=== PATIENT | female | born 1960 | race African-American/Black ===

== ENCOUNTER 2018-03-04 21:25 | Emergency (ER) | payer MEDICARE, MEDICAID ==
[~2018-03-04] VITALS: Ht 167.6 cm; Wt 112.0 kg
[~2018-03-04 21:25] MED LIST: ALPR-341 PO; AMLO10TA80 PO; SULI150T PO
[2018-03-04 23:30] LABS: BASOPHILS % 1.3 % (0.0-2.0); EOSINOPHILS % 6.2 % (0.0-5.0); HEMOGLOBIN. 12.5 g/dL (12.0-16.0); LYMPHOCYTES % 37.4 % (20.0-50.0); MEAN CORPUSCULAR HEMOGLOBIN 31.4 pg (28.0-32.0); MEAN CORPUSCULAR VOLUME 95.8 fL (81.0-99.0); MEAN PLATELET VOLUME 7.8 fl (7.4-10.4); MONOCYTES % 11.2 % (2.0-8.0); NEUTROPHILS % 43.9 % (40.0-76.0); PLATELET 313 x1000/uL (130-400); RED BLOOD CELL COUNT 3.97 mill/uL (4.2-5.4); RED CELL DISTRIBUTION WIDTH 13.5 % (11.6-14.6)
[2018-03-04 23:35] LABS: CHLORIDE 109 mEq/L (98-107)
[2018-03-05] MEDS ORDERED: CLONIDINE 0.2MG TABLET PO ONE (01:45)
[2018-03-05 03:30] VITALS: BP 186/90
[2018-04-06] MEDS ORDERED: P50 MT (10:33)
[2018-04-06] MEDS ORDERED: ALBU90AE INH (10:34)
[2018-04-06] MEDS ORDERED: ATOR10TA MT (12:10)
[2018-04-08] MEDS ORDERED: LEVO500T2 MT (16:43)
== END 2018-03-05 03:32 | disposition home or self-care (01) ==
LOC: ER 21:25
DX: J21.9 Acute bronchiolitis, unspecified (principal); I10 Essential (primary) hypertension; G40.909 Epilepsy, unspecified, not intractable, without status epilepticus; F12.10 Cannabis abuse, uncomplicated; Z88.8 Allergy status to other drugs, medicaments and biological substances
CPT/HCPCS: 36415; 71045; 93005; 99284

== ENCOUNTER 2018-04-04 18:21 | Inpatient (IN) | payer MEDICARE, MEDICAID ==
[~2018-04-04] VITALS: Ht 167.6 cm; Wt 113.4 kg
[2018-04-04] MEDS ORDERED: IPRATROPIUM BROMIDE (0.02%) 0.5MG/2.5ML NEB HHN STA (22:40)
[2018-04-04] MEDS ORDERED: ALBUTEROL (0.083%) 2.5MG/3ML NEB HHN STA (22:40)
[2018-04-04] MEDS ORDERED: METHYLPREDNISOLONE SOD SUCC 125 MG/2 ML VIAL IV STA (22:40)
[2018-04-04] MEDS ORDERED: LORAZEPAM 2MG/ML CPJ IV ONE (22:45)
[2018-04-04 23:07] LABS: HEMATOCRIT. 39.4 % (36.0-48.0); MEAN CORPUSCULAR HEMOGLOBIN 31.2 pg (28.0-32.0); MEAN CORPUSCULAR VOLUME 94.8 fL (81.0-99.0); PLATELET 341 x1000/uL (130-400); RED BLOOD CELL COUNT 4.15 mill/uL (4.2-5.4); RED CELL DISTRIBUTION WIDTH 13.5 % (11.6-14.6)
[2018-04-04 23:11] LABS: CHLORIDE 105 mEq/L (98-107)
[2018-04-04 23:21] LABS: PLATELET ESTIMATE NORMAL
[2018-04-04] MEDS ORDERED: HYDRALAZINE 20MG/ML VIAL IV ONE (23:45)
[2018-04-05] MEDS ORDERED: GUAIFENESIN 200MG/10ML SUGAR FREE UDC PO PRN (00:15)
[2018-04-05] MEDS ORDERED: ONDANSETRON HCL 4MG/2ML INJ IV PRN (00:15)
[2018-04-05] MEDS ORDERED: ACETAMINOPHEN 650MG SUPP PR PRN (00:15)
[2018-04-05] MEDS ORDERED: CLONIDINE 0.1MG TABLET PO ONE (00:15)
[2018-04-05] MEDS ORDERED: NA PHOS,M-B/NA PHOS,DI-BA ENEMA 118ML PR PRN (00:15)
[2018-04-05] MEDS ORDERED: DOCUSATE SODIUM 100MG CAPSULE PO PRN (00:15)
[2018-04-05] MEDS ORDERED: IPRATROPIUM/ALBUTEROL 0.5-3(2.5)MG/3ML NEB INH PRN (00:15)
[2018-04-05] MEDS ORDERED: ACETAMINOPHEN 650MG/20.3ML UDC GT PRN (00:15)
[2018-04-05] MEDS ORDERED: HYDROCODONE/ACETAMINOPHEN 5/325MG TABLET PO PRN (00:15)
[2018-04-05] MEDS ORDERED: DIPHENHYDRAMINE 50MG/ML VIAL IV PRN (00:15)
[2018-04-05] MEDS ORDERED: MAGNESIUM/ALUMINUM HYDROXIDE/SIMETHICONE 30ML UDC PO PRN (00:15)
[2018-04-05] MEDS: IPRATROPIUM/ALBUTEROL 0.5-3(2.5)MG/3ML NEB INH SCH ×4 (00:15→21:20)
[2018-04-05] MEDS ORDERED: ENOXAPARIN 40MG/0.4ML SYR SUBCUT SCH (00:15)
[2018-04-05] MEDS ORDERED: ACETAMINOPHEN 325MG TABLET PO PRN (00:15)
[2018-04-05] MEDS ORDERED: LEVOFLOXACIN 500MG PREMIX 100 ML IV SCH (00:15)
[2018-04-05 00:59] LABS: CLARITY URINE CLEAR (CLEAR); COLOR URINE YELLOW (YELLOW); KETONES URINE NEGATIVE (NEGATIVE); LEUKOCYTE ESTERASE URINE 1+ (NEGATIVE); NITRITE URINE NEGATIVE (NEGATIVE); OCCULT BLOOD URINE NEGATIVE (NEGATIVE); PROTEIN URINE NEGATIVE (NEGATIVE); SPECIFIC GRAVITY URINE 1.009 (1.005-1.030); UROBILINOGEN URINE 0.2 E.U./dL (0.2-1.0)
[2018-04-05 01:08] LABS: *AMPHETAMINES SCREEN URINE NEGATIVE (NEGATIVE); *BARBITURATES SCREEN URINE NEGATIVE (NEGATIVE); *BENZODIAZEPINES SCREEN URINE NEGATIVE (NEGATIVE)
[2018-04-05 01:09] LABS: *COCAINE SCREEN URINE NEGATIVE (NEGATIVE); METHADONE URINE SCREEN NEGATIVE (NEGATIVE); OPIATES URINE SCREEN NEGATIVE (NEGATIVE); PHENCYCLIDINE URINE SCREEN NEGATIVE (NEGATIVE)
[2018-04-05 01:10] LABS: CANNABINOID URINE SCREEN PRESUMTIVE POSITIVE (NEGATIVE)
[2018-04-05] MEDS ORDERED: LEVOFLOXACIN 500MG PREMIX 100 ML IV NR (03:00)
[2018-04-05] MEDS ORDERED: METRONIDAZOLE 500 MG PREMIX 100 ML IV SCH ×3 (06:00→14:00)
[2018-04-05] MEDS ORDERED: SODIUM CHLORIDE 0.9% INJ 3ML FLUSH IVF SCH (06:00)
[2018-04-05 06:13] LABS: CREATINE KINASE 265 IU/L (26-192)
[2018-04-05 06:14] LABS: CREATINE KINASE MB FRACTION 1.8 ng/mL (0.5-3.6)
[2018-04-05] MEDS: CLONIDINE 0.1MG TABLET PO PRN ×3 (06:35→21:42)
[2018-04-05] MEDS: METHYLPREDNISOLONE SOD SUCC 125 MG/2 ML VIAL IV SCH ×3 (07:53→17:15)
[2018-04-05] MEDS: ENOXAPARIN 30MG/0.3ML SYR SUBCUT SCH ×2 (08:30→19:58)
[2018-04-05] MEDS: SODIUM CHLORIDE 0.9% INJ 3ML FLUSH IVF SCH ×2 (14:43→21:21)
[2018-04-05 16:00] VITALS: BP 167/81
[2018-04-05 17:38] LABS: CREATINE KINASE 218 IU/L (26-192)
[2018-04-05 20:00] VITALS: BP 163/69
[2018-04-05] MEDS: METRONIDAZOLE 500 MG PREMIX 100 ML IV SCH (21:21)
[2018-04-06] VITALS: BP 148/75
[2018-04-06] MEDS: LEVOFLOXACIN 500MG PREMIX 100 ML IV SCH (00:06)
[2018-04-06] MEDS: METHYLPREDNISOLONE SOD SUCC 125 MG/2 ML VIAL IV SCH ×2 (00:06→06:01)
[2018-04-06] MEDS: IPRATROPIUM/ALBUTEROL 0.5-3(2.5)MG/3ML NEB INH SCH ×3 (00:55→08:45)
[2018-04-06 04:00] VITALS: BP 178/83
[2018-04-06 06:00] LABS: HEMATOCRIT. 37.7 % (36.0-48.0); HEMOGLOBIN. 12.4 g/dL (12.0-16.0); MEAN CORPUSCULAR HEMOGLOBIN 30.9 pg (28.0-32.0); MEAN CORPUSCULAR VOLUME 93.8 fL (81.0-99.0); PLATELET 358 x1000/uL (130-400); RED BLOOD CELL COUNT 4.02 mill/uL (4.2-5.4); RED CELL DISTRIBUTION WIDTH 13.8 % (11.6-14.6)
[2018-04-06] MEDS: METRONIDAZOLE 500 MG PREMIX 100 ML IV SCH (06:01)
[2018-04-06] MEDS: SODIUM CHLORIDE 0.9% INJ 3ML FLUSH IVF SCH ×3 (06:01→21:03)
[2018-04-06 06:44] LABS: CHLORIDE 105 mEq/L (98-107)
[2018-04-06 06:52] LABS: LDL CHOLESTEROL 134 mg/dL (5-100)
[2018-04-06 06:54] LABS: HDL CHOLESTEROL 58 mg/dL (40-59)
[2018-04-06] MEDS: CLONIDINE 0.1MG TABLET PO PRN ×2 (07:06→17:45)
[2018-04-06 08:00] VITALS: BP 153/80
[2018-04-06] MEDS: ENOXAPARIN 30MG/0.3ML SYR SUBCUT SCH ×2 (08:13→21:05)
[2018-04-06] MEDS ORDERED: HYDRALAZINE HCL 50MG TABLET PO SCH (10:30)
[2018-04-06] MEDS ORDERED: P50 MT (10:33)
[2018-04-06] MEDS ORDERED: ALBU90AE INH (10:34)
[2018-04-06 10:50] LABS: PLATELET ESTIMATE NORMAL
[2018-04-06 12:00] VITALS: BP 155/73
[2018-04-06] MEDS ORDERED: ATOR10TA MT (12:10)
[2018-04-06] MEDS: AMLODIPINE 10MG TABLET PO SCH (12:36)
[2018-04-06 13:52] LABS: T4 FREE 1.09 ng/dL (0.76-1.46)
[2018-04-06] MEDS: BUDESONIDE 0.5MG/2ML NEB HHN SCH (14:02)
[2018-04-06] MEDS: IPRATROPIUM BROMIDE (0.02%) 0.5MG/2.5ML NEB HHN SCH ×2 (14:04→21:42)
[2018-04-06 15:54] LABS: CREATINE KINASE 184 IU/L (26-192)
[2018-04-06 16:00] VITALS: BP 166/89
[2018-04-06 18:53] LABS: CLARITY URINE CLEAR (CLEAR); COLOR URINE YELLOW (YELLOW); KETONES URINE NEGATIVE (NEGATIVE); LEUKOCYTE ESTERASE URINE 2+ (NEGATIVE); NITRITE URINE NEGATIVE (NEGATIVE); OCCULT BLOOD URINE NEGATIVE (NEGATIVE); PROTEIN URINE NEGATIVE (NEGATIVE); SPECIFIC GRAVITY URINE 1.016 (1.005-1.030); UROBILINOGEN URINE 0.2 E.U./dL (0.2-1.0)
[2018-04-06 20:00] VITALS: BP 130/66
[2018-04-06] MEDS: ATORVASTATIN CALCIUM 10MG TABLET PO SCH (21:02)
[2018-04-06] MEDS: GUAIFENESIN 600MG ER TABLET PO SCH (21:03)
[2018-04-06 22:49] LABS: CREATINE KINASE 139 IU/L (26-192)
[2018-04-06 22:50] LABS: CREATINE KINASE MB FRACTION 4.7 ng/mL (0.5-3.6)
[2018-04-07] VITALS: BP 132/65
[2018-04-07] MEDS: LEVOFLOXACIN 500MG PREMIX 100 ML IV SCH (00:46)
[2018-04-07] MEDS: IPRATROPIUM BROMIDE (0.02%) 0.5MG/2.5ML NEB HHN SCH ×5 (01:59→21:45)
[2018-04-07] MEDS: BUDESONIDE 0.5MG/2ML NEB HHN SCH ×3 (02:00→21:45)
[2018-04-07 02:55] LABS: HEMOGLOBIN 12.4 g/dL (12.0-16.0); MEAN CORPUSCULAR HEMOGLOBIN 30.7 pg (28.0-32.0); MEAN CORPUSCULAR VOLUME 94.2 fL (81.0-99.0); PLATELET 351 x1000/uL (130-400); RED BLOOD CELL COUNT 4.04 mill/uL (4.2-5.4); RED CELL DISTRIBUTION WIDTH 13.9 % (11.6-14.6)
[2018-04-07 03:04] LABS: INR 1.3; PARTIAL THROMBOPLASTIN TIME 28.1 sec (23.4-31.0); PROTHROMBIN TIME 13.1 sec (9.1-11.1)
[2018-04-07 03:11] LABS: CREATINE KINASE 142 IU/L (26-192)
[2018-04-07 04:00] VITALS: BP 174/81
[2018-04-07 04:22] VITALS: BP 161/70
[2018-04-07] MEDS: SODIUM CHLORIDE 0.9% INJ 3ML FLUSH IVF SCH ×3 (05:43→21:12)
[2018-04-07] MEDS: AMLODIPINE 10MG TABLET PO SCH (09:31)
[2018-04-07] MEDS: ENOXAPARIN 30MG/0.3ML SYR SUBCUT SCH ×2 (09:32→21:12)
[2018-04-07] MEDS: GUAIFENESIN 600MG ER TABLET PO SCH ×2 (09:32→21:12)
[2018-04-07] MEDS ORDERED: IOHEXOL-350 100 ML BOTTLE ONE (09:55)
[2018-04-07 12:00] VITALS: BP 158/90
[2018-04-07 16:06] VITALS: BP 135/70
[2018-04-07 20:00] VITALS: BP 150/75
[2018-04-07] MEDS: ATORVASTATIN CALCIUM 10MG TABLET PO SCH (21:12)
[2018-04-08] VITALS: BP 168/93
[2018-04-08] MEDS: LEVOFLOXACIN 500MG PREMIX 100 ML IV SCH (00:02)
[2018-04-08 01:35] VITALS: BP 161/87
[2018-04-08] MEDS ORDERED: AMLODIPINE 10MG TABLET PO NR (02:45)
[2018-04-08] MEDS: IPRATROPIUM BROMIDE (0.02%) 0.5MG/2.5ML NEB HHN SCH ×3 (03:19→13:12)
[2018-04-08] MEDS: SODIUM CHLORIDE 0.9% INJ 3ML FLUSH IVF SCH (03:59)
[2018-04-08 04:00] VITALS: BP 158/84
[2018-04-08 08:00] VITALS: BP 154/89
[2018-04-08] MEDS: BUDESONIDE 0.5MG/2ML NEB HHN SCH (08:09)
[2018-04-08] MEDS: ENOXAPARIN 30MG/0.3ML SYR SUBCUT SCH (08:46)
[2018-04-08] MEDS: AMLODIPINE 10MG TABLET PO SCH (08:46)
[2018-04-08] MEDS: GUAIFENESIN 600MG ER TABLET PO SCH (08:47)
[2018-04-08] MEDS ORDERED: AZITHROMYCIN 500 MG TABLET PO SCH (09:30)
[2018-04-08] MEDS ORDERED: OSELTAMIVIR 75MG CAPSULE PO SCH (09:30)
[2018-04-08] MEDS ORDERED: CEFTRIAXONE 1 G PREMIX 50 ML IV SCH (09:30)
[2018-04-08] MEDS ORDERED: CEFTRIAXONE 1,000 MG in DEXTROSE 5% WATER 50 ML IV SCH (11:00)
[2018-04-08 12:00] VITALS: BP 161/90
[2018-04-08 16:00] VITALS: BP 149/89
[2018-04-08] MEDS ORDERED: LEVO500T2 MT (16:43)
== END 2018-04-08 20:03 | disposition home health service (06) | DRG 871 ==
LOC: ER 18:21 → 7WST 04-05 00:09 → EDBEDREQ 04-05 00:10 → ENRESERV 04-05 12:31 → 7WST 04-05 15:19 → UNDOADMIN 04-05 15:19
PROVIDERS: ADMIT Family Medicine; ATTEND Family Medicine
DX: A41.9 Sepsis, unspecified organism (principal); J96.00 Acute respiratory failure, unspecified whether with hypoxia or hypercapnia; J44.1 Chronic obstructive pulmonary disease with (acute) exacerbation; I16.1 Hypertensive emergency; J44.0 Chronic obstructive pulmonary disease with (acute) lower respiratory infection; I50.32 Chronic diastolic (congestive) heart failure; Z68.41 Body mass index [BMI] 40.0-44.9, adult; B34.9 Viral infection, unspecified; G40.909 Epilepsy, unspecified, not intractable, without status epilepticus; J20.9 Acute bronchitis, unspecified; D72.821 Monocytosis (symptomatic); E66.01 Morbid (severe) obesity due to excess calories; E78.5 Hyperlipidemia, unspecified; F12.90 Cannabis use, unspecified, uncomplicated; F41.9 Anxiety disorder, unspecified; I11.0 Hypertensive heart disease with heart failure; Z82.49 Family history of ischemic heart disease and other diseases of the circulatory system; Z88.8 Allergy status to other drugs, medicaments and biological substances; Z88.2 Allergy status to sulfonamides
CPT/HCPCS: 36415; 70496; 70498; 70551; 71045; 80061; 80305; 82550; 82553; 82962; 83036; 83880; 84439; 84443; 84484; 85027; 85379; 87804; 92610; 93005; 93306; 93970; 94640; 96365; 96375; 97162; 99291; J0360; J0696; J1200; J1650; J1956; J2060; J2930; J3490; J7050; J7060; J7611; J7620; J7626; Q9967

== ENCOUNTER 2020-02-11 06:05 | Inpatient (IN) | payer MEDICARE, MEDICAID ==
[~2020-02-11] VITALS: Ht 167.6 cm; Wt 99.8 kg
[~2020-02-11 06:05] MED LIST changes: +ALBU90AE INH; +ATOR10TA MT; +LEVO500T2 MT; +P50 MT
[2020-02-11] MEDS ORDERED: VISCOUS LIDOCAINE 2% 15 ML UDC PO STA (06:41)
[2020-02-11] MEDS ORDERED: MAGNESIUM/ALUMINUM HYDROXIDE/SIMETHICONE 30ML UDC PO STA (06:41)
[2020-02-11] MEDS ORDERED: SODIUM CHLORIDE 0.9% 1000ML BAG (SEPSIS BOLUS) IV ONE (06:45)
[2020-02-11 08:27] LABS: BASOPHILS % 0.4 % (0.0-2.0); HEMATOCRIT. 40.1 % (36.0-48.0); HEMOGLOBIN. 13.2 g/dL (12.0-16.0); MEAN CORPUSCULAR HEMOGLOBIN 30.8 pg (28.0-32.0); MEAN CORPUSCULAR VOLUME 93.4 fL (81.0-99.0); MEAN PLATELET VOLUME 8.8 fl (7.4-10.4); MONOCYTES % 12.6 % (2.0-8.0); PLATELET 132 x1000/uL (130-400); RED BLOOD CELL COUNT 4.29 mill/uL (4.2-5.4)
[2020-02-11 08:35] LABS: CHLORIDE 106 mEq/L (98-107)
[2020-02-11 08:44] LABS: CREATINE KINASE 179 IU/L (26-192); D-DIMER 0.72 mg/L FEU (<0.50); INR 1.2; PROTHROMBIN TIME 12.3 sec (9.6-11.0)
[2020-02-11 10:29] LABS: BG BASE EXCESS -0.8 mmol/L (-2.0-2.0); BG CARBOXYHEMOGLOBIN 0.5 % (0.5-1.5); BG DEOXYHEMOGLOBIN 9.9 % (0.0-5.0); BG HCO3 ACT 22.5 mmol/L (22.0-26.0); BG METHEMOGLOBIN 0.2 % (0.0-1.5); BG OXYHEMOGLOBIN 89.4 % (94.0-97.0); BG PCO2 33.3 mmHg (35.0-45.0); BG PH 7.448 (7.350-7.450); BG PO2 58.3 mmHg (75.0-100.0); BG SAMPLE SITE RIGHT RADIAL; BG TOTAL HEMOGLOBIN 13.3 g/dL (12.0-18.0); BG VENT MODE NASAL CANNULA
[2020-02-11] MEDS ORDERED: LORAZEPAM 0.5MG TABLET PO PRN (12:30)
[2020-02-11] MEDS ORDERED: GUAIFENESIN 200MG/10ML SUGAR FREE UDC PO PRN (12:30)
[2020-02-11] MEDS ORDERED: ONDANSETRON HCL 4MG/2ML INJ IV PRN (12:30)
[2020-02-11] MEDS ORDERED: DOCUSATE SODIUM 100MG CAPSULE PO PRN (12:30)
[2020-02-11] MEDS ORDERED: ALBUTEROL 6.7GM HFA INHALER ORI PRN (12:30)
[2020-02-11] MEDS ORDERED: ACETAMINOPHEN 325MG TABLET PO PRN (12:30)
[2020-02-11] MEDS ORDERED: KETOROLAC 15MG/ML VIAL IV PRN (12:30)
[2020-02-11] MEDS ORDERED: MAGNESIUM/ALUMINUM HYDROXIDE/SIMETHICONE 30ML UDC PO PRN (12:30)
[2020-02-11] MEDS ORDERED: AZITHROMYCIN 500 MG in DEXT 5% WATER 250 ML IV SCH (13:00)
[2020-02-11] MEDS: ENOXAPARIN 30MG/0.3ML SYR SUBCUT SCH ×2 (13:00→22:59)
[2020-02-11] MEDS: AMLODIPINE 10MG TABLET PO SCH (14:00)
[2020-02-11] MEDS: GUAIFENESIN/DM 600MG/30MG ER TAB 12HR PO SCH ×2 (14:00→22:59)
[2020-02-11] MEDS: CEFTRIAXONE 1 G PREMIX 50 ML IV SCH (14:00)
[2020-02-11] MEDS: METHYLPREDNISOLONE SOD SUCC 125 MG/2 ML VIAL IV SCH ×2 (14:25→22:55)
[2020-02-11 15:29] LABS: CREATINE KINASE 171 IU/L (26-192)
[2020-02-11 15:30] LABS: CREATINE KINASE MB FRACTION < 1.0 ng/mL (0.5-3.6)
[2020-02-11] MEDS ORDERED: ZOLPIDEM TARTRATE 5MG TABLET PO PRN (21:00)
[2020-02-11] MEDS: ASCORBIC ACID 500 MG TABLET PO SCH (22:48)
[2020-02-11] MEDS: FAMOTIDINE 20MG TABLET PO SCH (22:49)
[2020-02-11 23:31] LABS: CREATINE KINASE 185 IU/L (26-192)
[2020-02-11 23:32] LABS: CREATINE KINASE MB FRACTION 1.1 ng/mL (0.5-3.6)
[2020-02-12] MEDS: NITROGLYCERIN 0.4MG TABLET SL SL PRN (02:28)
[2020-02-12] MEDS: CLONIDINE 0.1MG TABLET PO PRN (04:18)
[2020-02-12] MEDS: METHYLPREDNISOLONE SOD SUCC 125 MG/2 ML VIAL IV SCH ×3 (06:42→23:41)
[2020-02-12] MEDS: ZINC SULFATE 220 MG ( 50 ) CAPSULE PO SCH (09:43)
[2020-02-12] MEDS: AMLODIPINE 10MG TABLET PO SCH (09:54)
[2020-02-12] MEDS: GUAIFENESIN/DM 600MG/30MG ER TAB 12HR PO SCH ×2 (09:54→20:47)
[2020-02-12] MEDS: ASCORBIC ACID 500 MG TABLET PO SCH ×2 (09:54→20:47)
[2020-02-12] MEDS: FAMOTIDINE 20MG TABLET PO SCH ×2 (09:54→20:47)
[2020-02-12] MEDS: ENOXAPARIN 30MG/0.3ML SYR SUBCUT SCH ×2 (09:55→20:48)
[2020-02-12] MEDS: CEFTRIAXONE 1 G PREMIX 50 ML IV SCH (13:30)
[2020-02-12] MEDS: AZITHROMYCIN 500 MG in DEXT 5% WATER 250 ML IV SCH ×2 (13:33→14:04)
[2020-02-13 03:52] VITALS: BP 180/86
[2020-02-13 04:00] VITALS: BP 148/59
[2020-02-13] MEDS: METHYLPREDNISOLONE SOD SUCC 125 MG/2 ML VIAL IV SCH ×3 (05:34→21:50)
[2020-02-13] MEDS: NITROGLYCERIN 0.4MG TABLET SL SL PRN (05:49)
[2020-02-13 06:23] LABS: BASOPHILS % 0.2 % (0.0-2.0); HEMATOCRIT. 39.4 % (36.0-48.0); HEMOGLOBIN. 12.9 g/dL (12.0-16.0); LYMPHOCYTES % 7.4 % (20.0-50.0); MEAN CORPUSCULAR HEMOGLOBIN 30.6 pg (28.0-32.0); MONOCYTES % 6.5 % (2.0-8.0); NEUTROPHILS % 85.9 % (40.0-76.0); PLATELET 175 x1000/uL (130-400); RED BLOOD CELL COUNT 4.23 mill/uL (4.2-5.4); RED CELL DISTRIBUTION WIDTH 13.9 % (11.6-14.6)
[2020-02-13 06:28] LABS: CHLORIDE 102 mEq/L (98-107)
[2020-02-13 06:41] LABS: PHOSPHORUS 3.9 mg/dL (2.5-4.9)
[2020-02-13 08:00] VITALS: BP 156/65
[2020-02-13] MEDS: FAMOTIDINE 20MG TABLET PO SCH ×3 (09:00→20:45)
[2020-02-13] MEDS: ASCORBIC ACID 500 MG TABLET PO SCH ×3 (09:00→20:45)
[2020-02-13] MEDS: ZINC SULFATE 220 MG ( 50 ) CAPSULE PO SCH ×2 (09:00→09:09)
[2020-02-13] MEDS: GUAIFENESIN/DM 600MG/30MG ER TAB 12HR PO SCH ×2 (09:09→20:45)
[2020-02-13] MEDS: AMLODIPINE 10MG TABLET PO SCH (09:10)
[2020-02-13] MEDS: ENOXAPARIN 30MG/0.3ML SYR SUBCUT SCH ×2 (09:10→21:50)
[2020-02-13 11:51] VITALS: BP 155/67
[2020-02-13 16:00] VITALS: BP 142/73
[2020-02-13] MEDS: CEFTRIAXONE 1,000 MG in DEXTROSE 5% WATER 50 ML IV SCH (17:05)
[2020-02-13 20:00] VITALS: BP 147/69
[2020-02-13] MEDS: ACETAMINOPHEN 325MG TABLET PO PRN (20:49)
[2020-02-14] VITALS: BP 165/86
[2020-02-14] MEDS: CLONIDINE 0.1MG TABLET PO PRN (02:21)
[2020-02-14 04:00] VITALS: BP 157/90
[2020-02-14] MEDS: METHYLPREDNISOLONE SOD SUCC 125 MG/2 ML VIAL IV SCH ×3 (07:30→21:12)
[2020-02-14 08:00] VITALS: BP 146/77
[2020-02-14] MEDS: GUAIFENESIN/DM 600MG/30MG ER TAB 12HR PO SCH ×2 (09:10→21:11)
[2020-02-14] MEDS: ENOXAPARIN 30MG/0.3ML SYR SUBCUT SCH ×2 (09:10→21:12)
[2020-02-14] MEDS: ASCORBIC ACID 500 MG TABLET PO SCH ×2 (09:10→21:12)
[2020-02-14] MEDS: ZINC SULFATE 220 MG ( 50 ) CAPSULE PO SCH (09:10)
[2020-02-14] MEDS: AMLODIPINE 10MG TABLET PO SCH (09:18)
[2020-02-14 12:00] VITALS: BP 145/87
[2020-02-14 16:00] VITALS: BP 143/74
[2020-02-14] MEDS: CEFTRIAXONE 1,000 MG in DEXTROSE 5% WATER 50 ML IV SCH (18:00)
[2020-02-14] MEDS: FAMOTIDINE 20MG TABLET PO SCH (18:02)
[2020-02-14] MEDS: AZITHROMYCIN 500 MG in DEXT 5% WATER 250 ML IV SCH (18:02)
[2020-02-14 20:00] VITALS: BP 152/82
[2020-02-15] VITALS (7 sets, daily range): BP systolic 117–183; BP diastolic 71–82
[2020-02-15] MEDS: FAMOTIDINE 20MG TABLET PO SCH ×3 (00:44→23:26)
[2020-02-15] MEDS: METHYLPREDNISOLONE SOD SUCC 125 MG/2 ML VIAL IV SCH ×3 (05:34→23:26)
[2020-02-15] MEDS: CLONIDINE 0.1MG TABLET PO PRN (06:20)
[2020-02-15] MEDS: ZINC SULFATE 220 MG ( 50 ) CAPSULE PO SCH (09:40)
[2020-02-15] MEDS: AMLODIPINE 10MG TABLET PO SCH (09:40)
[2020-02-15] MEDS: ASCORBIC ACID 500 MG TABLET PO SCH ×2 (09:40→23:26)
[2020-02-15] MEDS: GUAIFENESIN/DM 600MG/30MG ER TAB 12HR PO SCH ×2 (09:40→23:26)
[2020-02-15] MEDS: ENOXAPARIN 30MG/0.3ML SYR SUBCUT SCH ×2 (09:40→23:27)
[2020-02-15] MEDS: AZITHROMYCIN 500 MG in DEXT 5% WATER 250 ML IV SCH (14:00)
[2020-02-15] MEDS: CEFTRIAXONE 1,000 MG in DEXTROSE 5% WATER 50 ML IV SCH (18:19)
[2020-02-16] MEDS: METHYLPREDNISOLONE SOD SUCC 125 MG/2 ML VIAL IV SCH ×3 (06:20→21:16)
[2020-02-16] MEDS: CLONIDINE 0.1MG TABLET PO PRN ×2 (06:20→14:07)
[2020-02-16 08:00] VITALS: BP 190/93
[2020-02-16] MEDS: GUAIFENESIN/DM 600MG/30MG ER TAB 12HR PO SCH ×2 (08:30→21:17)
[2020-02-16] MEDS: ASCORBIC ACID 500 MG TABLET PO SCH ×2 (08:30→21:17)
[2020-02-16] MEDS: ZINC SULFATE 220 MG ( 50 ) CAPSULE PO SCH (08:30)
[2020-02-16] MEDS: FAMOTIDINE 20MG TABLET PO SCH ×2 (08:30→21:17)
[2020-02-16] MEDS: AMLODIPINE 10MG TABLET PO SCH (08:31)
[2020-02-16] MEDS: ENOXAPARIN 30MG/0.3ML SYR SUBCUT SCH ×2 (08:31→21:21)
[2020-02-16 12:00] VITALS: BP 165/75
[2020-02-16] MEDS: LISINOPRIL 10MG TABLET PO SCH (14:30)
[2020-02-16 16:00] VITALS: BP 173/88
[2020-02-16 20:00] VITALS: BP 176/87
[2020-02-16 20:00] LABS: T4 FREE 1.29 ng/dL (0.76-1.46)
[2020-02-16] MEDS: ALBUTEROL 6.7GM HFA INHALER ORI SCH (21:00)
[2020-02-17] VITALS: BP 151/62
[2020-02-17] MEDS: ALBUTEROL 6.7GM HFA INHALER ORI SCH ×4 (03:00→21:14)
[2020-02-17] MEDS: ACETAMINOPHEN 325MG TABLET PO PRN (03:16)
[2020-02-17 03:57] VITALS: BP 140/76
[2020-02-17] MEDS: METHYLPREDNISOLONE SOD SUCC 125 MG/2 ML VIAL IV SCH ×3 (05:13→21:14)
[2020-02-17] MEDS: NITROGLYCERIN 0.4MG TABLET SL SL PRN (06:15)
[2020-02-17 08:00] VITALS: BP 180/78
[2020-02-17] MEDS: ASCORBIC ACID 500 MG TABLET PO SCH ×2 (09:29→21:14)
[2020-02-17] MEDS: FAMOTIDINE 20MG TABLET PO SCH ×2 (09:29→21:14)
[2020-02-17] MEDS: ZINC SULFATE 220 MG ( 50 ) CAPSULE PO SCH (09:29)
[2020-02-17] MEDS: LISINOPRIL 10MG TABLET PO SCH (09:29)
[2020-02-17] MEDS: ENOXAPARIN 30MG/0.3ML SYR SUBCUT SCH ×2 (09:29→21:18)
[2020-02-17] MEDS: AMLODIPINE 10MG TABLET PO SCH (09:30)
[2020-02-17 12:00] VITALS: BP 153/85
[2020-02-17 16:00] VITALS: BP 137/71
[2020-02-17] MEDS: GUAIFENESIN/DM 600MG/30MG ER TAB 12HR PO SCH ×2 (16:14→21:14)
[2020-02-17 20:00] VITALS: BP 145/73
[2020-02-17] MEDS: ISOSORBIDE MONONITRATE 30MG TABLET SR 24HR PO SCH (21:18)
[2020-02-18] VITALS: BP 112/61
[2020-02-18 01:06] LABS: BASOPHILS % 0.1 % (0.0-2.0); HEMATOCRIT. 36.9 % (36.0-48.0); HEMOGLOBIN. 12.3 g/dL (12.0-16.0); LYMPHOCYTES % 8.3 % (20.0-50.0); MEAN CORPUSCULAR HEMOGLOBIN 30.5 pg (28.0-32.0); MEAN CORPUSCULAR VOLUME 91.5 fL (81.0-99.0); MEAN PLATELET VOLUME 9.3 fl (7.4-10.4); MONOCYTES % 5.9 % (2.0-8.0); NEUTROPHILS % 85.7 % (40.0-76.0); PLATELET 273 x1000/uL (130-400); RED BLOOD CELL COUNT 4.03 mill/uL (4.2-5.4); RED CELL DISTRIBUTION WIDTH 13.7 % (11.6-14.6)
[2020-02-18 01:12] LABS: CHLORIDE 100 mEq/L (98-107)
[2020-02-18 01:47] LABS: INR 1.3
[2020-02-18 02:01] LABS: BG BASE EXCESS 4.9 mmol/L (-2.0-2.0); BG CARBOXYHEMOGLOBIN 0.1 % (0.5-1.5); BG DEOXYHEMOGLOBIN 3.2 % (0.0-5.0); BG FRACTION INSPIRED OXYGEN 28; BG HCO3 ACT 29.1 mmol/L (22.0-26.0); BG METHEMOGLOBIN 0.1 % (0.0-1.5); BG OXYGEN SATURATION 96.8 % (92.0-98.5); BG OXYHEMOGLOBIN 96.6 % (94.0-97.0); BG PCO2 41.4 mmHg (35.0-45.0); BG PH 7.465 (7.350-7.450); BG PO2 89.1 mmHg (75.0-100.0); BG SAMPLE SITE RIGHT RADIAL; BG TOTAL HEMOGLOBIN 12.8 g/dL (12.0-18.0); BG VENT MODE NASAL CANNULA
[2020-02-18 02:10] LABS: CHLORIDE 100 mEq/L (98-107)
[2020-02-18] MEDS: ALBUTEROL 6.7GM HFA INHALER ORI SCH ×4 (03:11→21:13)
[2020-02-18 04:00] VITALS: BP 121/67
[2020-02-18] MEDS: METHYLPREDNISOLONE SOD SUCC 125 MG/2 ML VIAL IV SCH ×3 (06:19→21:12)
[2020-02-18 08:00] VITALS: BP 135/79
[2020-02-18] MEDS: AMLODIPINE 10MG TABLET PO SCH ×2 (09:00→09:42)
[2020-02-18] MEDS: LISINOPRIL 10MG TABLET PO SCH ×2 (09:00→09:43)
[2020-02-18] MEDS: ASCORBIC ACID 500 MG TABLET PO SCH ×2 (09:42→21:11)
[2020-02-18] MEDS: ZINC SULFATE 220 MG ( 50 ) CAPSULE PO SCH (09:42)
[2020-02-18] MEDS: FAMOTIDINE 20MG TABLET PO SCH ×2 (09:42→21:11)
[2020-02-18] MEDS: GUAIFENESIN/DM 600MG/30MG ER TAB 12HR PO SCH ×2 (09:42→21:12)
[2020-02-18] MEDS: ENOXAPARIN 30MG/0.3ML SYR SUBCUT SCH ×2 (09:42→21:11)
[2020-02-18 12:50] VITALS: BP 145/85
[2020-02-18 16:56] VITALS: BP 157/73
[2020-02-18 20:00] VITALS: BP 174/81
[2020-02-18] MEDS: ISOSORBIDE MONONITRATE 30MG TABLET SR 24HR PO SCH (21:12)
[2020-02-19] VITALS (7 sets, daily range): BP systolic 131–180; BP diastolic 63–83
[2020-02-19] MEDS: ALBUTEROL 6.7GM HFA INHALER ORI SCH ×4 (04:01→21:56)
[2020-02-19] MEDS: METHYLPREDNISOLONE SOD SUCC 125 MG/2 ML VIAL IV SCH ×3 (05:11→21:56)
[2020-02-19] MEDS: LISINOPRIL 10MG TABLET PO SCH ×2 (09:00→09:27)
[2020-02-19] MEDS: AMLODIPINE 10MG TABLET PO SCH (09:27)
[2020-02-19] MEDS: GUAIFENESIN/DM 600MG/30MG ER TAB 12HR PO SCH ×2 (09:27→21:56)
[2020-02-19] MEDS: ZINC SULFATE 220 MG ( 50 ) CAPSULE PO SCH (09:27)
[2020-02-19] MEDS: ENOXAPARIN 30MG/0.3ML SYR SUBCUT SCH ×2 (09:27→21:56)
[2020-02-19] MEDS: ASCORBIC ACID 500 MG TABLET PO SCH ×2 (09:27→21:57)
[2020-02-19] MEDS: FAMOTIDINE 20MG TABLET PO SCH ×2 (09:28→21:57)
[2020-02-19] MEDS: ISOSORBIDE MONONITRATE 30MG TABLET SR 24HR PO SCH (21:57)
[2020-02-20] VITALS: BP 130/88
[2020-02-20] MEDS: ALBUTEROL 6.7GM HFA INHALER ORI SCH ×4 (02:46→23:04)
[2020-02-20 04:00] VITALS: BP 145/78
[2020-02-20] MEDS: METHYLPREDNISOLONE SOD SUCC 125 MG/2 ML VIAL IV SCH ×3 (05:08→23:08)
[2020-02-20 08:00] VITALS: BP 128/65
[2020-02-20] MEDS: LISINOPRIL 10MG TABLET PO SCH (09:00)
[2020-02-20] MEDS: ASCORBIC ACID 500 MG TABLET PO SCH ×2 (09:17→23:04)
[2020-02-20] MEDS: FAMOTIDINE 20MG TABLET PO SCH ×2 (09:17→23:07)
[2020-02-20] MEDS: ENOXAPARIN 30MG/0.3ML SYR SUBCUT SCH ×2 (09:17→23:07)
[2020-02-20] MEDS: GUAIFENESIN/DM 600MG/30MG ER TAB 12HR PO SCH ×2 (09:18→23:08)
[2020-02-20] MEDS: ZINC SULFATE 220 MG ( 50 ) CAPSULE PO SCH (09:18)
[2020-02-20] MEDS: AMLODIPINE 10MG TABLET PO SCH (09:24)
[2020-02-20 12:00] VITALS: BP 159/58
[2020-02-20 16:00] VITALS: BP 145/78
[2020-02-20 20:00] VITALS: BP 161/64
[2020-02-20] MEDS: ISOSORBIDE MONONITRATE 30MG TABLET SR 24HR PO SCH (21:00)
[2020-02-21] VITALS: BP 160/67
[2020-02-21] MEDS: ALBUTEROL 6.7GM HFA INHALER ORI SCH ×2 (03:29→09:06)
[2020-02-21 04:00] VITALS: BP 137/70
[2020-02-21] MEDS: METHYLPREDNISOLONE SOD SUCC 125 MG/2 ML VIAL IV SCH (05:38)
[2020-02-21 08:00] VITALS: BP 160/60
[2020-02-21] MEDS: LISINOPRIL 10MG TABLET PO SCH (09:00)
[2020-02-21] MEDS: GUAIFENESIN/DM 600MG/30MG ER TAB 12HR PO SCH (09:05)
[2020-02-21] MEDS: ENOXAPARIN 30MG/0.3ML SYR SUBCUT SCH (09:05)
[2020-02-21] MEDS: ZINC SULFATE 220 MG ( 50 ) CAPSULE PO SCH (09:05)
[2020-02-21] MEDS: ASCORBIC ACID 500 MG TABLET PO SCH (09:05)
[2020-02-21] MEDS: AMLODIPINE 10MG TABLET PO SCH (09:05)
[2020-02-21] MEDS: FAMOTIDINE 20MG TABLET PO SCH (10:03)
[2020-02-21 12:00] VITALS: BP 156/79
[2020-02-21 12:59] VITALS: BP 156/79
== END 2020-02-21 14:25 | disposition home health service (06) | DRG 871 ==
LOC: ER 06:05 → EDBEDREQSVC 09:27 → EDBEDREQTM 09:27 → EDBEDREQ 09:27 → MICUSO 11:11 → EDBEDREQTM 11:31 → EDBEDREQ 11:31 → SUPCPDRO 12:36 → 8WST 02-13 01:25
PROVIDERS: ADMIT Internal Medicine; ATTEND Internal Medicine
DX: A41.89 Other specified sepsis (principal); U07.1 COVID-19; J96.01 Acute respiratory failure with hypoxia; G92 Toxic encephalopathy; J12.82 Pneumonia due to coronavirus disease 2019; J18.9 Pneumonia, unspecified organism; E44.0 Moderate protein-calorie malnutrition; J45.901 Unspecified asthma with (acute) exacerbation; I50.32 Chronic diastolic (congestive) heart failure; E78.00 Pure hypercholesterolemia, unspecified; I11.0 Hypertensive heart disease with heart failure; I16.0 Hypertensive urgency; R56.9 Unspecified convulsions; E66.01 Morbid (severe) obesity due to excess calories; Z68.35 Body mass index [BMI] 35.0-35.9, adult; Z88.9 Allergy status to unspecified drugs, medicaments and biological substances; Z88.8 Allergy status to other drugs, medicaments and biological substances; Z82.49 Family history of ischemic heart disease and other diseases of the circulatory system; Z79.899 Other long term (current) drug therapy
CPT/HCPCS: 36415; 36600; 71045; 80048; 80053; 80061; 82375; 82550; 82553; 82728; 82805; 82962; 83036; 83605; 83615; 83735; 84100; 84145; 84439; 84443; 84484; 85025; 85379; 85384; 86140; 86850; 86900; 87635; 87804; 93005; 93970; 99285; J0456; J0696; J1650; J2930; J7030; J7040; J7060

== ENCOUNTER 2021-05-16 13:09 | Emergency (ER) | payer MEDICARE, MEDICAID ==
[~2021-05-16] VITALS: Ht 167.6 cm; Wt 125.0 kg
[2021-05-16] MEDS ORDERED: MAGNESIUM/ALUMINUM HYDROXIDE/SIMETHICONE 30ML UDC PO STA (13:41)
[2021-05-16 14:24] LABS: BASOPHILS % 1.2 % (0.0-2.0); EOSINOPHILS % 4.9 % (0.0-5.0); HEMATOCRIT. 37.4 % (36.0-48.0); HEMOGLOBIN. 12.1 g/dL (12.0-16.0); LYMPHOCYTES % 44.3 % (20.0-50.0); MEAN CORPUSCULAR HEMOGLOBIN 30.5 pg (28.0-32.0); MEAN PLATELET VOLUME 8.3 fl (7.4-10.4); MONOCYTES % 10.1 % (2.0-8.0); NEUTROPHILS % 39.5 % (40.0-76.0); PLATELET 316 x1000/uL (130-400); RED BLOOD CELL COUNT 3.98 mill/uL (4.2-5.4); RED CELL DISTRIBUTION WIDTH 13.7 % (11.6-14.6)
[2021-05-16 14:28] LABS: CHLORIDE 109 mEq/L (98-107)
[2021-05-16] MEDS ORDERED: AMLODIPINE 10MG TABLET PO ONE (15:15)
[2021-05-16 15:46] VITALS: BP 192/95
[2021-05-16] MEDS ORDERED: AMLO10TA80 PO (16:13)
== END 2021-05-16 17:01 | disposition home or self-care (01) ==
LOC: ER 13:09
DX: R10.13 Epigastric pain (principal); R07.89 Other chest pain; I16.0 Hypertensive urgency; G40.909 Epilepsy, unspecified, not intractable, without status epilepticus; Z88.8 Allergy status to other drugs, medicaments and biological substances
CPT/HCPCS: 36415; 71045; 80053; 83880; 84484; 85025; 93005; 99285

== ENCOUNTER 2022-03-05 10:59 | Inpatient (IN) | payer MEDICARE, MEDICAID ==
[~2022-03-05] VITALS: Ht 167.6 cm; Wt 114.1 kg
[2022-03-05] MEDS ORDERED: losartan (11:02)
[2022-03-05] MEDS ORDERED: KETOROLAC 30MG/ML VIAL IV STA (11:37)
[2022-03-05] MEDS ORDERED: DIPHENHYDRAMINE 50MG/ML VIAL IV ONE (11:45)
[2022-03-05] MEDS ORDERED: METOCLOPRAMIDE HCL 10MG/2ML VIAL IV ONE (11:45)
[2022-03-05] MEDS ORDERED: SODIUM CHLORIDE 0.9% 1,000 ML IV ONE (11:45)
[2022-03-05 12:11] LABS: BASOPHILS % 1.1 % (0.0-2.0); HEMATOCRIT. 41.2 % (36.0-48.0); HEMOGLOBIN. 13.8 g/dL (12.0-16.0); LYMPHOCYTES % 35.8 % (20.0-50.0); MEAN CORPUSCULAR HEMOGLOBIN 31.6 pg (28.0-32.0); MEAN CORPUSCULAR VOLUME 94.4 fL (81.0-99.0); MEAN PLATELET VOLUME 8.2 fl (7.4-10.4); NEUTROPHILS % 52.1 % (40.0-76.0); PLATELET 372 x1000/uL (130-400); RED BLOOD CELL COUNT 4.36 mill/uL (4.2-5.4); RED CELL DISTRIBUTION WIDTH 13.5 % (11.6-14.6)
[2022-03-05 12:12] LABS: CLARITY URINE CLEAR (CLEAR); COLOR URINE YELLOW (YELLOW); KETONES URINE NEGATIVE (NEGATIVE); LEUKOCYTE ESTERASE URINE NEGATIVE (NEGATIVE); NITRITE URINE NEGATIVE (NEGATIVE); OCCULT BLOOD URINE NEGATIVE (NEGATIVE); PROTEIN URINE NEGATIVE (NEGATIVE); SPECIFIC GRAVITY URINE 1.009 (1.005-1.030); UROBILINOGEN URINE 0.2 E.U./dL (0.2-1.0)
[2022-03-05 12:23] LABS: CHLORIDE 108 mEq/L (98-107)
[2022-03-05] MEDS ORDERED: HYDRALAZINE 20MG/ML VIAL IV ONE (12:30)
[2022-03-05] MEDS ORDERED: LORAZEPAM 2MG/ML CPJ IV ONE (12:30)
[2022-03-05] MEDS ORDERED: LORAZEPAM 2MG/ML CPJ IV PRN (18:00)
[2022-03-05] MEDS ORDERED: IPRATROPIUM/ALBUTEROL 0.5-3(2.5)MG/3ML NEB HHN PRN (18:00)
[2022-03-05] MEDS ORDERED: ACETAMINOPHEN 325MG TABLET PO PRN ×2 (18:00)
[2022-03-05] MEDS ORDERED: DOCUSATE SODIUM 100MG CAPSULE PO PRN (18:00)
[2022-03-05] MEDS ORDERED: HYDROCODONE/ACETAMINOPHEN 5/325MG TABLET PO PRN (18:00)
[2022-03-05] MEDS ORDERED: LORAZEPAM 0.5MG TABLET PO PRN (18:00)
[2022-03-05] MEDS ORDERED: ONDANSETRON HCL 4MG/2ML INJ IV PRN (18:00)
[2022-03-05] MEDS ORDERED: NALOXONE HCL 0.4MG/ML VIAL IV PRN (18:15)
[2022-03-05 18:27] LABS: *AMPHETAMINES SCREEN URINE NEGATIVE (NEGATIVE); *BARBITURATES SCREEN URINE NEGATIVE (NEGATIVE); *BENZODIAZEPINES SCREEN URINE NEGATIVE (NEGATIVE); *COCAINE SCREEN URINE NEGATIVE (NEGATIVE); CANNABINOID URINE SCREEN PRESUMTIVE POSITIVE (NEGATIVE); METHADONE URINE SCREEN NEGATIVE (NEGATIVE); OPIATES URINE SCREEN NEGATIVE (NEGATIVE); PHENCYCLIDINE URINE SCREEN NEGATIVE (NEGATIVE)
[2022-03-05] MEDS ORDERED: IRBE75TA9 MT (21:16)
[2022-03-05 21:24] VITALS: BP 153/81
[2022-03-05 21:35] VITALS: BP 153/81
[2022-03-06] VITALS: BP 148/67
[2022-03-06 04:00] VITALS: BP 145/85
[2022-03-06 07:23] LABS: BASOPHILS % 0.9 % (0.0-2.0); EOSINOPHILS % 5.4 % (0.0-5.0); HEMATOCRIT. 36.4 % (36.0-48.0); HEMOGLOBIN. 12.3 g/dL (12.0-16.0); LYMPHOCYTES % 44.2 % (20.0-50.0); MEAN CORPUSCULAR HEMOGLOBIN 31.9 pg (28.0-32.0); MEAN CORPUSCULAR VOLUME 94.7 fL (81.0-99.0); MEAN PLATELET VOLUME 8.2 fl (7.4-10.4); MONOCYTES % 10.4 % (2.0-8.0); NEUTROPHILS % 39.1 % (40.0-76.0); PLATELET 311 x1000/uL (130-400); RED BLOOD CELL COUNT 3.84 mill/uL (4.2-5.4); RED CELL DISTRIBUTION WIDTH 13.6 % (11.6-14.6)
[2022-03-06 07:46] LABS: CHLORIDE 111 mEq/L (98-107)
[2022-03-06 08:00] VITALS: BP 169/94
[2022-03-06] MEDS ORDERED: LOSARTAN POTASSIUM 25 MG TABLET PO SCH (09:00)
[2022-03-06] MEDS: IRBESARTAN 75MG TABLET PO SCH (09:26)
[2022-03-06] MEDS: AMLODIPINE 10MG TABLET PO SCH (09:26)
[2022-03-06 12:00] VITALS: BP 173/89
[2022-03-06] MEDS: CLONIDINE 0.1MG TABLET PO PRN (12:57)
[2022-03-06] MEDS ORDERED: LOSARTAN POTASSIUM 50 MG TABLET PO SCH (14:15)
[2022-03-06] MEDS ORDERED: IPRATROPIUM BROMIDE (0.02%) 0.5MG/2.5ML NEB HHN PRN (14:30)
[2022-03-06] MEDS ORDERED: ALBUTEROL (0.083%) 2.5MG/3ML NEB HHN PRN (14:30)
[2022-03-06 16:00] VITALS: BP 152/90
[2022-03-06 20:00] VITALS: BP 155/84
[2022-03-07] VITALS: BP 148/65
[2022-03-07 04:00] VITALS: BP 155/85
[2022-03-07 08:00] VITALS: BP 155/73
[2022-03-07] MEDS: AMLODIPINE 10MG TABLET PO SCH (08:52)
[2022-03-07] MEDS: IRBESARTAN 75MG TABLET PO SCH (08:52)
[2022-03-07] MEDS ORDERED: LOSARTAN POTASSIUM 50 MG TABLET PO SCH (09:00)
[2022-03-07 12:00] VITALS: BP 133/70
[2022-03-07 16:00] VITALS: BP 147/70
[2022-03-07 20:00] VITALS: BP 172/90
[2022-03-07] MEDS: CLONIDINE 0.1MG TABLET PO PRN (20:34)
[2022-03-08] VITALS: BP 157/68
[2022-03-08 04:00] VITALS: BP 144/72
[2022-03-08 07:20] LABS: HEMOGLOBIN. 12.3 g/dL (12.0-16.0); MEAN CORPUSCULAR HEMOGLOBIN 31.2 pg (28.0-32.0); MEAN CORPUSCULAR VOLUME 94.2 fL (81.0-99.0); MEAN PLATELET VOLUME 8.2 fl (7.4-10.4); PLATELET 290 x1000/uL (130-400); RED BLOOD CELL COUNT 3.93 mill/uL (4.2-5.4); RED CELL DISTRIBUTION WIDTH 13.4 % (11.6-14.6)
[2022-03-08 07:40] VITALS: BP 137/76
[2022-03-08 07:48] LABS: CHLORIDE 106 mEq/L (98-107)
[2022-03-08] MEDS: IRBESARTAN 75MG TABLET PO SCH (08:58)
[2022-03-08] MEDS: AMLODIPINE 10MG TABLET PO SCH (08:58)
[2022-03-08 12:00] VITALS: BP 130/80
[2022-03-08 13:27] LABS: PLATELET ESTIMATE NORMAL
[2022-03-08 15:52] VITALS: BP 130/80
== END 2022-03-08 17:52 | disposition home health service (06) | DRG 304 ==
LOC: ER 10:59 → 7WST 13:44
PROVIDERS: ADMIT Family Medicine Adult Medicine; ATTEND Family Medicine Adult Medicine
PROC: 4A00X4Z Measurement of Central Nervous Electrical Activity, External Approach (ICD-10-PCS; principal; 2022-03-07)
DX: I16.0 Hypertensive urgency (principal); G82.50 Quadriplegia, unspecified; M47.12 Other spondylosis with myelopathy, cervical region; Z68.41 Body mass index [BMI] 40.0-44.9, adult; J44.9 Chronic obstructive pulmonary disease, unspecified; G40.909 Epilepsy, unspecified, not intractable, without status epilepticus; E66.9 Obesity, unspecified; F12.90 Cannabis use, unspecified, uncomplicated; I10 Essential (primary) hypertension; M48.02 Spinal stenosis, cervical region; Z86.16 Personal history of COVID-19; Z88.8 Allergy status to other drugs, medicaments and biological substances; Z79.899 Other long term (current) drug therapy; Z88.2 Allergy status to sulfonamides; Z90.49 Acquired absence of other specified parts of digestive tract; Z87.01 Personal history of pneumonia (recurrent); Z82.49 Family history of ischemic heart disease and other diseases of the circulatory system
CPT/HCPCS: 36415; 70551; 71045; 72141; 80048; 80053; 80305; 81003; 84484; 85025; 85379; 86850; 86900; 95816; 99285; J0360; J1200; J1885; J2060; J2765; J7030